=== PATIENT | male | born 1945 | race Caucasian/White ===

== ENCOUNTER 2020-11-11 05:46 | Day surgery (SDC) | payer OTHER ==
[2020-11-09 10:52] VITALS: BP 163/74
[2020-11-09 12:57] LABS: BASOPHILS % (AUTO) 0.3 % (0.0-5.0); EOSINOPHILS % (AUTO) 1.6 % (0.0-8.0); HEMATOCRIT 46.2 % (42-54); LYMPHOCYTES % (AUTO) 36.3 % (21.0-51.0); MEAN CORPUSCULAR HEMOGLOBIN 31.8 pg (27.0-33.0); MEAN CORPUSCULAR HGB CONC 32.9 g/dL (32.0-36.0); MEAN CORPUSCULAR VOLUME 96.7 fL (79-99); MONOCYTES % (AUTO) 7.5 % (3.0-13.0); PLATELET COUNT (AUTO) 227 K/uL (130-400); RED BLOOD CELL COUNT(AUTO) 4.78 MIL/uL (4.50-6.20); RED CELL DISTRIBUTION WIDTH 12.7 % (11.0-15.5); WHITE BLOOD COUNT (AUTO) 9.3 K/uL (4.8-10.8)
[2020-11-09 13:00] LABS: APPEARANCE,URINE Clear (CLEAR); BILIRUBIN,URINE Negative (NEGATIVE); COLOR,URINE Yellow (YELLOW); GLUCOSE, URINE (UA) Negative (NEGATIVE); KETONES,URINE Negative (NEGATIVE); LEUKOCYTE ESTERASE ,URINE Negative (NEGATIVE); NITRATE,URINE Negative (NEGATIVE); OCCULT BLOOD,URINE Negative (NEGATIVE); PH,URINE 6.5 (5.0-8.0); PROTEIN,URINE Negative (NEGATIVE); UROBILINOGEN,URINE 0.2 mg/dL (0.2-1.0)
[2020-11-09 13:10] LABS: CREATININE 1.6 mg/dL (0.5-1.5); POTASSIUM 4.8 mmol/L (3.5-5.1); PROTHROMBIN TIME 10.9 SEC (9.6-11.6)
[2020-11-09 13:12] LABS: PARTIAL THROMBOPLASTIN TIME 28.5 SEC (26.3-35.5)
[~2020-11-11] VITALS: Ht 172.7 cm; Wt 83.9 kg
[2020-11-11] VITALS (12 sets, daily range): BP systolic 136–159; BP diastolic 78–97
[~2020-11-11 05:46] MED LIST: ASPI-1197 PO; ATOR20TA65 PO; METO25TA6 PO
[2020-11-11] MEDS ORDERED: 0.9%NACL 1000ML 1,000 ML IV ONE (06:16)
[2020-11-11] MEDS ORDERED: IOHEXOL 350 MG/ML 100ML INFUS..BTL IV ONE (07:10)
[2020-11-11] MEDS ORDERED: NITROGLYCERIN 2 MG VIAL IV ONE (07:10)
[2020-11-11] MEDS ORDERED: FENTANYL CITRATE PF 50 MCG/1 ML 2ML VIAL ONE (07:11)
[2020-11-11] MEDS ORDERED: MIDAZOLAM HCL 1 MG/ML 2ML VIAL ONE (07:11)
[2020-11-11] MEDS ORDERED: LIDOCAINE HCL 400MG/20ML VIAL ONE (07:11)
[2020-11-11] MEDS ORDERED: 0.9%NACL 1000ML 1,000 ML IV SCH ×2 (08:00→10:00)
[2020-11-11] MEDS ORDERED: ONDANSETRON 4MG INJ ONE (08:11)
[2020-11-11] MEDS ORDERED: HEPARIN 10,000 UNIT/10ML (1,000 UNIT/ML) VIAL ONE (08:33)
[2020-11-11] MEDS ORDERED: DEXTROSE 50%-WATER 50 ML DISP.SYRIN IV PRN (10:00)
[2020-11-11] MEDS ORDERED: INSULIN HUMULIN R 100 UNIT/ML 3ML SQ SCH (11:30)
== END 2020-11-11 15:35 | disposition home or self-care (01) ==
LOC: DAH 05:46
PROVIDERS: ATTEND Internal Medicine Cardiovascular Disease
DX: I25.118 Atherosclerotic heart disease of native coronary artery with other forms of angina pectoris (principal); I13.0 Hypertensive heart and chronic kidney disease with heart failure and stage 1 through stage 4 chronic kidney disease, or unspecified chronic kidney disease; N18.30 Chronic kidney disease, stage 3 unspecified; I50.32 Chronic diastolic (congestive) heart failure; I35.0 Nonrheumatic aortic (valve) stenosis; Z79.01 Long term (current) use of anticoagulants; Z79.899 Other long term (current) drug therapy
CPT/HCPCS: 36415; 71045; 80048; 81003; 85025; 85610; 85730; 93005; 93460; A4215; A4216; A4221; A4222; A4223 ×3; A4606; A4663; C1760; C1769 ×2; C1893; C1894 ×2; J1644 ×4; J2405; J3010; J3490 ×2; J7030; Q9965 ×2; Q9967; 99156; 99157; J2250

== ENCOUNTER → 2021-11-09 | Outpatient (CLI) | payer OTHER | END | disposition home or self-care (01) | LOC: SHCH 12:45 | PROVIDERS: ATTEND Internal Medicine Cardiovascular Disease | DX: I08.3 Combined rheumatic disorders of mitral, aortic and tricuspid valves (principal); I13.10 Hypertensive heart and chronic kidney disease without heart failure, with stage 1 through stage 4 chronic kidney disease, or unspecified chronic kidney disease; N18.30 Chronic kidney disease, stage 3 unspecified; I25.10 Atherosclerotic heart disease of native coronary artery without angina pectoris; E78.5 Hyperlipidemia, unspecified; Z95.2 Presence of prosthetic heart valve; Z95.1 Presence of aortocoronary bypass graft | CPT/HCPCS: 93306 ==

== ENCOUNTER → 2023-04-07 | Outpatient (CLI) | payer OTHER ==
[~2023-04-07] MED LIST changes: +ALBUHFA IH; +DEXA6TAB PO; +DOXY100C5 PO; +OSEL75 PO; +REGADENOSON 0.4 MG/5 ML PF SYG IVP ONE
== END | disposition home or self-care (01) ==
LOC: SHCH 08:36
PROVIDERS: ATTEND Internal Medicine Cardiovascular Disease
DX: I25.119 Atherosclerotic heart disease of native coronary artery with unspecified angina pectoris (principal); I44.7 Left bundle-branch block, unspecified; I25.9 Chronic ischemic heart disease, unspecified
CPT/HCPCS: 78452; 96374; 93017; J2785; A9500 ×2

== ENCOUNTER 2023-08-10 05:50 | Day surgery (SDC) | payer OTHER ==
[2023-08-08 09:31] LABS: ADD UA MICROSCOPIC NO; APPEARANCE,URINE CLEAR (CLEAR); BILIRUBIN,URINE NEGATIVE (NEGATIVE); COLOR,URINE LIGHT-YELLOW (YELLOW); GLUCOSE, URINE (UA) NEGATIVE (NEGATIVE); KETONES,URINE NEGATIVE (NEGATIVE); LEUKOCYTE ESTERASE ,URINE NEGATIVE Leu/uL (NEGATIVE); NITRATE,URINE NEGATIVE (NEGATIVE); OCCULT BLOOD,URINE NEGATIVE (NEGATIVE); PROTEIN,URINE NEGATIVE (NEGATIVE); UROBILINOGEN,URINE 0.2 mg/dL (0.2-1.0)
[2023-08-08 09:44] VITALS: BP 125/69; PULSE 82; RESP 16
[2023-08-08 10:09] LABS: BASOPHILS # (AUTO) 0.03 K/uL (0.00-0.20); BASOPHILS % (AUTO) 0.3 % (0.0-5.0); EOSINOPHILS # (AUTO) 0.15 K/uL (0.00-0.70); EOSINOPHILS % (AUTO) 1.5 % (0.0-8.0); HEMATOCRIT 43.5 % (42-54); IMMATURE GRANULOCYTE ABSOLUTE 0.04 K/uL (0-1); LYMPHOCYTES # (AUTO) 3.1 K/uL (1.0-4.8); MEAN CORPUSCULAR HEMOGLOBIN 31.7 pg (27.0-33.0); MEAN CORPUSCULAR HGB CONC 32.2 g/dL (32.0-36.0); MEAN CORPUSCULAR VOLUME 98.6 fL (79-99); MONOCYTES # (AUTO) 0.8 K/uL (0.1-1.0); MONOCYTES % (AUTO) 8.1 % (3.0-13.0); NEUTROPHILS # (AUTO) 5.6 K/uL (1.8-7.7); NEUTROPHILS % (AUTO) 57.7 % (40.0-77.0); PLATELET COUNT (AUTO) 156 K/uL (130-400); RED BLOOD CELL COUNT(AUTO) 4.41 MIL/uL (4.50-6.20); RED CELL DISTRIBUTION WIDTH 13.2 % (11.0-15.5); WHITE BLOOD COUNT (AUTO) 9.8 K/uL (4.8-10.8)
[2023-08-08 10:17] LABS: INR < 0.93 (0.85-1.15); PROTHROMBIN TIME 10.7 SEC (9.6-11.6)
[2023-08-08 10:18] LABS: PARTIAL THROMBOPLASTIN TIME 28.6 SEC (26.3-35.5)
[2023-08-08 10:19] LABS: CREATININE 1.7 mg/dL (0.5-1.5); POTASSIUM 4.6 mmol/L (3.5-5.1)
[2023-08-08 10:40] LABS: B-TYPE NATRIURETIC PEPTIDE 103 pg/mL (0-100)
[~2023-08-10] VITALS: Ht 172.7 cm; Wt 81.9 kg
[2023-08-10] VITALS (11 sets, daily range): BP systolic 101–143; BP diastolic 63–79; PULSE 60–82; RESP 14–18
[~2023-08-10 05:50] MED LIST changes: -ALBUHFA IH; -ATOR20TA65 PO; +ATOR40TA69 PO; -DEXA6TAB PO; -DOXY100C5 PO; +EZET10TA48 PO; +FINA5TAB41 PO; +ISOS30TA92 PO; +LOSA50TA64 PO; +METO-391 PO; -METO25TA6 PO; -OSEL75 PO; -REGADENOSON 0.4 MG/5 ML PF SYG IVP ONE; +TAMS-1 PO
[2023-08-10] MEDS ORDERED: 0.9%NACL 1000ML 1,000 ML IV ONE (06:17)
[2023-08-10] MEDS ORDERED: BIVALIRUDIN 250 MG/VIAL IV ONE (07:13)
[2023-08-10] MEDS ORDERED: LIDOCAINE HCL 400MG/20ML VIAL ONE (07:13)
[2023-08-10] MEDS ORDERED: FENTANYL CITRATE PF 50 MCG/1 ML 2ML VIAL ONE (07:13)
[2023-08-10] MEDS ORDERED: MIDAZOLAM HCL 1 MG/ML 2ML VIAL ONE (07:13)
[2023-08-10] MEDS ORDERED: IOHEXOL 350 MG/ML 100ML INFUS..BTL IV ONE (07:14)
[2023-08-10] MEDS ORDERED: IOHEXOL-350 50ML VIAL IV ONE (07:14)
[2023-08-10] MEDS ORDERED: NITROGLYCERIN 50MG VIAL ONE (07:14)
[2023-08-10] MEDS ORDERED: CLOPIDOGREL 300MG TAB ONE (09:03)
[2023-08-10] MEDS ORDERED: 0.9%NACL 1000ML 1,000 ML IV SCH (10:00)
== END 2023-08-10 14:35 | disposition home or self-care (01) ==
LOC: DAH 05:50
PROVIDERS: ATTEND Internal Medicine Cardiovascular Disease
DX: I25.119 Atherosclerotic heart disease of native coronary artery with unspecified angina pectoris (principal); R94.39 Abnormal result of other cardiovascular function study; I12.9 Hypertensive chronic kidney disease with stage 1 through stage 4 chronic kidney disease, or unspecified chronic kidney disease; N18.32 Chronic kidney disease, stage 3b; E78.5 Hyperlipidemia, unspecified; Z82.49 Family history of ischemic heart disease and other diseases of the circulatory system; Z79.82 Long term (current) use of aspirin; Z79.899 Other long term (current) drug therapy; Z87.891 Personal history of nicotine dependence; Z98.890 Other specified postprocedural states
CPT/HCPCS: 80048; 83880; 85025; 85610; 85730; 81003; 36415; 71045; 93005; 93459; 82948; A4223 ×3; C1769 ×2; C1894 ×2; C1874; C1887; C1760; Q9965 ×2; J3010; J3490 ×2; J7030; J2250; J1644 ×3; J0583; Q9967; A4215; A4222; A4221; A4663; A4216; A4606; C9604; 99156; 99157

== ENCOUNTER → 2023-12-27 | Outpatient (CLI) | payer OTHER | END | disposition home or self-care (01) | LOC: RAH 13:11 | PROVIDERS: ATTEND Internal Medicine Cardiovascular Disease | DX: J84.112 Idiopathic pulmonary fibrosis (principal); J44.9 Chronic obstructive pulmonary disease, unspecified; I25.10 Atherosclerotic heart disease of native coronary artery without angina pectoris; M47.815 Spondylosis without myelopathy or radiculopathy, thoracolumbar region | CPT/HCPCS: 71250 ==

== ENCOUNTER → 2024-09-24 | Outpatient (CLI) | payer OTHER ==
[2024-09-24 16:49] LABS: BASOPHILS # (AUTO) 0.04 K/uL (0.00-0.20); BASOPHILS % (AUTO) 0.4 % (0.0-5.0); EOSINOPHILS # (AUTO) 0.11 K/uL (0.00-0.70); EOSINOPHILS % (AUTO) 1.1 % (0.0-8.0); HEMATOCRIT 43.5 % (42-54); IMMATURE GRANULOCYTE ABSOLUTE 0.05 K/uL (0-1); LYMPHOCYTES # (AUTO) 2.1 K/uL (1.0-4.8); LYMPHOCYTES % (AUTO) 21.5 % (21.0-51.0); MEAN CORPUSCULAR HEMOGLOBIN 33.5 pg (27.0-33.0); MEAN CORPUSCULAR HGB CONC 32.6 g/dL (32.0-36.0); MEAN CORPUSCULAR VOLUME 102.6 fL (79-99); MONOCYTES # (AUTO) 0.9 K/uL (0.1-1.0); MONOCYTES % (AUTO) 9.7 % (3.0-13.0); NEUTROPHILS # (AUTO) 6.4 K/uL (1.8-7.7); NEUTROPHILS % (AUTO) 66.8 % (40.0-77.0); PLATELET COUNT (AUTO) 165 K/uL (130-400); RED BLOOD CELL COUNT(AUTO) 4.24 MIL/uL (4.50-6.20); RED CELL DISTRIBUTION WIDTH 13.2 % (11.0-15.5); WHITE BLOOD COUNT (AUTO) 9.6 K/uL (4.8-10.8)
[2024-09-24 17:17] LABS: ALBUMIN 3.6 g/dL (3.5-5.0); BILIRUBIN,TOTAL 0.3 mg/dL (0.2-1.0); CREATININE 1.6 mg/dL (0.5-1.3); POTASSIUM 4.3 mmol/L (3.5-5.1); TOTAL PROTEIN, SERUM 7.1 g/dL (6.0-8.3)
== END | disposition home or self-care (01) ==
LOC: LAB 11:47
PROVIDERS: ATTEND Internal Medicine Cardiovascular Disease
DX: I35.0 Nonrheumatic aortic (valve) stenosis (principal); Z79.01 Long term (current) use of anticoagulants
CPT/HCPCS: 36415; 80053; 85025

== ENCOUNTER → 2024-10-11 | Outpatient (CLI) | payer OTHER ==
[2024-10-11 15:10] LABS: BASOPHILS # (AUTO) 0.06 K/uL (0.00-0.20); BASOPHILS % (AUTO) 0.6 % (0.0-5.0); EOSINOPHILS # (AUTO) 0.23 K/uL (0.00-0.70); EOSINOPHILS % (AUTO) 2.2 % (0.0-8.0); HEMATOCRIT 43.5 % (42-54); IMMATURE GRANULOCYTE ABSOLUTE 0.03 K/uL (0-1); LYMPHOCYTES # (AUTO) 2.8 K/uL (1.0-4.8); LYMPHOCYTES % (AUTO) 27.4 % (21.0-51.0); MEAN CORPUSCULAR HEMOGLOBIN 32.9 pg (27.0-33.0); MEAN CORPUSCULAR HGB CONC 32.6 g/dL (32.0-36.0); MEAN CORPUSCULAR VOLUME 100.7 fL (79-99); MONOCYTES # (AUTO) 0.9 K/uL (0.1-1.0); MONOCYTES % (AUTO) 8.8 % (3.0-13.0); NEUTROPHILS # (AUTO) 6.3 K/uL (1.8-7.7); NEUTROPHILS % (AUTO) 60.7 % (40.0-77.0); PLATELET COUNT (AUTO) 163 K/uL (130-400); RED BLOOD CELL COUNT(AUTO) 4.32 MIL/uL (4.50-6.20); RED CELL DISTRIBUTION WIDTH 12.8 % (11.0-15.5); WHITE BLOOD COUNT (AUTO) 10.3 K/uL (4.8-10.8)
== END | disposition home or self-care (01) ==
LOC: LAB 11:36
PROVIDERS: ATTEND Internal Medicine Cardiovascular Disease
DX: I35.0 Nonrheumatic aortic (valve) stenosis (principal); Z79.01 Long term (current) use of anticoagulants
CPT/HCPCS: 36415; 85025

== ENCOUNTER → 2024-11-12 | Outpatient (CLI) | payer OTHER ==
[2024-11-12 12:23] LABS: INR 2.25 (0.85-1.15)
== END | disposition home or self-care (01) ==
LOC: LAB 10:08
PROVIDERS: ATTEND Internal Medicine Cardiovascular Disease
DX: Z51.81 Encounter for therapeutic drug level monitoring (principal); Z95.3 Presence of xenogenic heart valve; Z79.01 Long term (current) use of anticoagulants
CPT/HCPCS: 36415; 85610

== ENCOUNTER → 2024-12-27 | Outpatient (CLI) | payer OTHER ==
[~2024-12-27] MED LIST changes: -TAMS-1 PO; +TAMS-55 PO
[2024-12-27 12:10] LABS: CREATININE 1.8 mg/dL (0.5-1.3); POTASSIUM 4.9 mmol/L (3.5-5.1)
== END | disposition home or self-care (01) ==
LOC: LAB 09:04
PROVIDERS: ATTEND Internal Medicine Cardiovascular Disease
DX: I25.10 Atherosclerotic heart disease of native coronary artery without angina pectoris (principal); Z79.01 Long term (current) use of anticoagulants
CPT/HCPCS: 36415; 80048